=== PATIENT | female | born 1945 | race Caucasian/White ===

== ENCOUNTER 2022-11-27 12:52 | Outpatient (AMB) | payer MEDICARE, MEDICAID, SELFPAY ==
--- NOTE | 2022-11-27 12:53 | A.OFFPC_ITS ---
Vital Signs 11/27/22 12:55 Height 5 ft 1 in Weight 204 lb BMI 38.5 BP 120/60 Blood Pressure Location Lt brachial Position Sitting Pulse 71 Pulse Source Pulse Oximeter Pulse Oximetry (%) 97 Oxygen Delivery Method Room Air Intake Visit Reasons: Encounter for follow-up for hypertension Intake Note: Pt is here today to f/u b/p medication Allergies lisinopril [Lisinopril] Adverse Reaction (Mild, Verified 11/27/22 12:57) UNKNOWN From Lipitor Adverse Reaction (Mild, Uncoded 11/27/22 12:57) UNKNOWN Medication List - Last Reconciled 02/21/23 by Christy Sanchez MD acetaminophen-codeine 300-15 mg tabs PO diltiazem HCl 300 mg PO DAILY diphenoxylate-atropine 2.5-0.025 mg (Lomotil) 2 tabs PO DAILY PRN duloxetine 60 mg PO DAILY fexofenadine 60 mg PO Q12H ibrutinib (Imbruvica) 0 mg PO ketotifen fumarate 0.025%(0.035%) (Allergy Eye (ketotifen)) 1 drp ophthalmic (eye) Q12H letrozole 2.5 mg PO DAILY lorazepam 0.5 mg PO DAILY PRN meclizine 12.5 mg PO BID PRN metoprolol succinate ER 50 mg PO QPM omeprazole 20 mg PO DAILY PRN palbociclib (Ibrance) mg PO trazodone 200 mg (2 x 100 mg) PO BEDTIME Tobacco use date assessed: 11/27/22 Fall risk assessment: No Falls in past year Last assessed Fall Risk: 11/27/22 Dental Screening Dental Screen Date: 11/27/22 Did you have a dental visit in the last 12 months?: No Was dental information given to patient?: Patient declined HPI Hypertension (Cardio) History of Present Illness Current neurological symptoms Denies headache(s) Current cardiovascular symptom denies chest pain or dyspnea Most Recent Cardiac Tests: No Data to Display HPI Comments History of Present Illness Details 77-year-old lady here today for follow-u p on her hypertension. Currently taking diltiazem 300 mg once a day, metoprolol succinate ER 50 mg at bedtime. Has been compliant with taking her medications, with blood pressure today within normal limits at 120/60, and pulse of 71bpm. No complaints of any headache, no chest pain or lightheadedness on present treatment. [facility] Medical History Positional lightheadedness Gait instability Muscle cramps Insomnia Chronic diarrhea Obesity Rectovaginal fistula Osteoarthritis CKD (chronic kidney disease) stage 3, GFR 30-59 ml/min Dyslipidemia GERD (gastroesophageal reflux disease) Anxiety and depression Metastatic breast cancer Chronic low back pain CLL (chronic lymphocytic leukemia) Surgical History H/O abdominal hysterectomy Status post right breast lumpectomy Status post ileostomy Family History Mother Breast cancer Daughter Breast cancer Maternal Grandmother Breast cancer Social History Housing: House Patient Tobacco Use Status: Former Tobacco user Quit Date: For 30 years ago e-Cigarette/Vaping Use: Never Used service: No Current occupational status: retired Cognitive needs: No Hearing needs: No Vision needs: Yes Questionnaire Thrive Questionnaire Date Thrive assessed: 11/27/22 I am a: Patient What is your living situation today?: I have a steady place to live Within the past 12 months, did the food you bought not last and you didn't have the money to get more?: Never true Within the past 12 months, did you worry whether your food would run out before you got money to buy more?: Never true Do you have trouble paying for medicines?: No Do you have trouble getting transportation to medical appointments?: No Do you have trouble paying your heating and electricity bill?: No Do you have trouble taking care of your child, family member or friend?: No Do you have trouble with day-to-day activities such as bathing, preparing meals, shopping, managing finances, etc.?: No Are you currently unemployed and looking for a job?: No Are you interested in more education?: No NIDIA-7 AMB Questionnaire NIDIA-7 Date NIDIA - 7 assessed: 04/04/22 Source: Developed by Drs. Ken Sutton, Regina Dominguez, Rod Vanessa and colleagues, with an educational sole from [employer]. Review of Systems Const Denies fever(s), Denies headache(s) and Denies malaise Eyes Denies change in vision ENT Denies headache(s) Card Denies chest pain, Denies chest pain at rest, Denies rapid heart rate, Denies irregular heart rhythm and Denies dyspnea Resp Denies cough and Denies dyspnea GI Reports no additional complaints Reports no additional complaints Neuro Denies headache(s) Physical exam (Primary Care) Vital Signs: Last Vital Signs Pulse 71 11/27/22 12:55 BP 120/60 11/27/22 12:55 Pulse Ox 97 11/27/22 12:55 Oxygen Delivery Method Room Air 11/27/22 12:55 BMI result Body Mass Index 38.5 Tobacco/Smoking Status: Tobacco use Status Tobacco use date assessed 11/27/22 11/27/22 12:59 Patient Tobacco Use Status Former Tobacco user 11/27/22 12:55 e-Cigarette/Vaping Use Never Used 11/27/22 12:55 Thrive Assessment: Date of Thrive Assessment Date Thrive assessed 11/27/22 11/27/22 13:02 Const General: comfortable and no acute distress Nutritional Appearance: obese Orientation/consciousness: patient oriented x3 Eyes General: appearance normal, both eyes and all related structures Neck Neck: Yes full ROM, Yes no lymphadenopathy and Yes supple Resp Auscultation: clear to auscultation bilaterally Cardio Other: S1-S2 present regular rate and rhythm Neuro General: patient oriented x3, tone normal, moves all extremities, Normal light touch and pain sensation, no focal motor deficits and CN's II-XI intact bilaterally Extrem General: Yes full ROM, Yes no joint enlargement, Yes no pedal edema and Yes no calf tenderness Assessment and Plan Assessment & Plan (1) Essential hypertension: Code(s): I10 - Essential (primary) hypertension Plan: Blood pressure at goal of less than 130/80. Continue with current medication. Reinforced importance of following a low sodium diet, getting regular exercise, and lowering stress levels. (2) Encounter for follow-up for hypertension: Code(s): I10 - Essential (primary) hypertension Coding Level of Care Code Est Pt Level 3 (27464) Diagnoses Essential hypertension I10 Encounter for follow-up for hypertension I10
[2022-11-27 12:55] VITALS: BP 120/60; PULSE 71; O2SAT 97; BMI 38.5
== END 2022-11-27 15:09 | disposition home or self-care (01) ==
PROVIDERS: Visit Provider Internal Medicine
DX: I10 Essential (primary) hypertension (principal)
CPT/HCPCS: 99213

== ENCOUNTER 2023-05-21 10:32 | Outpatient (AMB) | payer MEDICARE, MEDICAID, SELFPAY ==
[2023-05-21 11:53] VITALS: BP 112/70; PULSE 96; TEMP 36.5; O2SAT 98; BMI 37.0
--- NOTE | 2023-05-21 11:53 | AM.OFFWIN_ITS ---
Intake Vital Signs 05/21/23 11:53 Height 5 ft 1 in Weight 196 lb BMI 37.0 BP 112/70 Blood Pressure Location Lt brachial Position Sitting Pulse 96 Pulse Source Pulse Oximeter Temp 97.7 F Temp Source Temporal Artery Scan Pulse Oximetry (%) 98 Oxygen Delivery Method Room Air Intake Visit Reasons: EP eyes watering congestion Masked in Lobby Intake Note: pt is here today for eyes watering congestion started 10 days ago Patient Tobacco Use Status: Former Tobacco user Quit Date: For 30 years ago Allergies lisinopril [Lisinopril] Adverse Reaction (Mild, Verified 05/21/23 12:04) UNKNOWN From Lipitor Adverse Reaction (Mild, Uncoded 11/27/22 12:57) UNKNOWN Do you need a note to return to daycare/school/sports/work: No HPI HPI Comments History of Present Illness Details Patient is a 77-year-old female in today for a sick visit. She has a past medical history significant for CLL, breast cancer, hypertension, hyperlipidemia, chronic kidney disease. She states that for the past several days she has developed a runny nose, and postnasal drip, which she states she can feel going down her throat and she feels like she constantly needs to expectorate. She has tried [id number] Robitussin with little relief. She denies travel or being around anyone [place] who [place]. Patient states that she feels weak and tired because she has not been able to eat much over the past few days. Denies shortness of Breath, chest pain, dizziness, vomiting, diarrhea, numbness, or tingling. Patient will have upper respiratory swab, and in the office EKG. [facility] Medical History Positional lightheadedness Gait instability Muscle cramps Insomnia Chronic diarrhea Obesity Rectovaginal fistula Osteoarthritis CKD (chronic kidney disease) stage 3, GFR 30-59 ml/min Dyslipidemia GERD (gastroesophageal reflux disease) Anxiety and depression Metastatic breast cancer Chronic low back pain CLL (chronic lymphocytic leukemia) Surgical History H/O abdominal hysterectomy Status post right breast lumpectomy Status post ileostomy Family History Mother Breast cancer Daughter Breast cancer Maternal Grandmother Breast cancer Social History Housing: House Patient Tobacco Use Status: Former Tobacco user Quit Date: For 30 years ago e-Cigarette/Vaping Use: Never Used service: No Current occupational status: retired Cognitive needs: No Hearing needs: No Vision needs: Yes Review of Systems Const Details: Constitutional : Admits some Weight loss, No Fever, No Chills, Admits Fatigue. ENT/Mouth : No sore throat, No Rhinorrhea Eyes: No Eye Pain, No Swelling, No Redness Cardiovascular : No Chest Pain, No SOB, No Dyspnea on Exertion, No Orthopnea, No Edema, No Palpitations Respiratory : Admits Cough, Admits clear Sputum, No Wheezing Gastrointestinal : No Nausea, No Vomiting, No Diarrhea, No Constipation, No abdominal Pain, No Hematochezia, No Melena Neuro : No Weakness, No Numbness, No Dizziness, No Headache All other systems reviewed and are negative Physical Exam Vital Signs: Last Vital Signs Temp 97.7 F 05/21/23 11:53 Pulse 96 05/21/23 11:53 BP 112/70 05/21/23 11:53 Pulse Ox 98 05/21/23 11:53 Oxygen Delivery Method Room Air 05/21/23 11:53 BMI result Body Mass Index 37.0 Vital signs reviewed and are stable Const Other: Appearance: Alert.? Oriented X3.? No acute distress.? Eyes: Pupils equal, round and reactive to light.? ENT: ?Post nasal drip. Pale nasal membrane with clear nasal drainage. Neck: Normal inspection.? Neck supple.?ROM normal. CVS: Normal heart rate and rhythm.? Pulses normal.? Respiratory: No respiratory distress.? Breath sounds normal.? Neuro: Oriented X 3.? No motor deficit.? No sensory deficit. CN 2-12 intact General: cooperative Results Reviewed Results Reviewed: Will call patient with swab results. Assessment & Plan Assessment & Plan (1) Upper respiratory infection: Comment: Patient will have upper respiratory swab. Patient had in office EKG which demonstrated normal sinus rhythm. Will give fluticasone nasal spray, prednisone, and albuterol, to be taken as directed. She has been educated on signs of worsening symptoms when to present back to the walk-in or when to present to the emergency room. Patient is agreeable to this plan Code(s): J06.9 - Acute upper respiratory infection, unspecified Qualifiers: URI type: unspecified viral URI Qualified Code(s): J06.9 - Acute upper respiratory infection, unspecified Plan: Take medication as directed and follow-up with PCP. Orders: Orders SARS-CoV2/FLU/RSV Today J06.9 - Acute upper respiratory infection, unspecified AMB EKG-In Office Today R06.02 - Shortness of breath Medications: New prednisone 20 mg PO DAILY 5 tabs 0RF fluticasone propionate 50 mcg/actuation (Allergy Relief (fluticasone)) administer into each nostril 2 sprays intranasal DAILY 16 grams 0RF albuterol sulfate 90 mcg/actuation 2 puffs inhalation Q6H PRN 6.7 grams 0RF shortness of breath or wheezing Coding Level of Care Code Est Pt Level 3 (19488) Diagnoses Viral upper respiratory tract infection J06.9 URI type: unspecified viral URI Time Spent (min) 30
== END 2023-05-21 13:52 | disposition home or self-care (01) ==
PROVIDERS: PCP Internal Medicine; Visit Provider Nurse Practitioner Primary Care
DX: J06.9 Acute upper respiratory infection, unspecified (principal)
CPT/HCPCS: 99213

== ENCOUNTER 2023-05-21 16:24 | Outpatient (REF) | payer MEDICARE, MEDICAID, SELFPAY ==
[2023-05-21 17:36] LABS: Influenza A PCR NEGATIVE (Negative); Influenza B PCR NEGATIVE (Negative); Resp Syncy Virus RNA Qual PCR NEGATIVE (Negative); SARS COV2 PCR INHOUSE POSITIVE (Negative)
== END 2023-05-21 16:25 | disposition home or self-care (01) ==
LOC: HO.HMGCLNP 16:24
PROVIDERS: Visit Provider Nurse Practitioner Primary Care
DX: Z11.52 Encounter for screening for COVID-19 (principal); J06.9 Acute upper respiratory infection, unspecified
CPT/HCPCS: 0241U

== ENCOUNTER 2023-10-03 13:35 | Outpatient (AMB) | payer MEDICARE, MEDICAID, SELFPAY ==
[2023-10-03 13:39] VITALS: BP 132/70; PULSE 76; O2SAT 96; BMI 36.7
--- NOTE | 2023-10-03 13:39 | A.OFFPC_ITS ---
Vital Signs 10/03/23 13:39 Height 5 ft 1 in Weight 194 lb 8 oz BMI 36.7 BP 132/70 Blood Pressure Location Lt brachial Position Sitting Pulse 76 Pulse Source Pulse Oximeter Pulse Oximetry (%) 96 Oxygen Delivery Method Room Air Intake Visit Reasons: medication follow up/was cancelled for 08/07 Intake Note: Pt is here today for medication follow up, missed appointment in August. Allergies lisinopril [Lisinopril] Adverse Reaction (Mild, Verified 10/03/23 14:01) UNKNOWN From Lipitor Adverse Reaction (Mild, Uncoded 10/03/23 14:01) UNKNOWN Medication List - Last Reconciled 10/03/23 by Christy Sanchez MD acetaminophen-codeine 300-15 mg tabs PO albuterol sulfate 90 mcg/actuation 2 puffs inhalation Q6H PRN cetirizine (Zyrtec) 10 mg PO DAILY PRN diltiazem HCl CD 300 mg PO DAILY diphenoxylate-atropine 2.5-0.025 mg (Lomotil) 2 tabs PO DAILY PRN duloxetine 60 mg PO DAILY fluticasone propionate 50 mcg/actuation (Allergy Relief (fluticasone)) 2 sprays intranasal DAILY ibrutinib (Imbruvica) 0 mg PO ketotifen fumarate 0.025%(0.035%) (Allergy Eye (ketotifen)) 1 drp ophthalmic (eye) Q12H letrozole 2.5 mg PO DAILY lorazepam 0.5 mg PO DAILY PRN meclizine 12.5 mg PO BID PRN metoprolol succinate ER 50 mg PO QPM omeprazole 20 mg PO DAILY PRN palbociclib (Ibrance) mg PO trazodone 200 mg (2 x 100 mg) PO BEDTIME zoledronic acid 4 mg IV Q3W Tobacco use date assessed: 10/03/23 Fall risk assessment: No Falls in past year Last assessed Fall Risk: 10/03/23 Dental Screening Dental Screen Date: 10/03/23 Did you have a dental visit in the last 12 months?: No Did you have a dental problem in the last 6 months where you did not have access to dental care?: No Was dental information given to patient?: No HPI HPI Comments History of Present Illness Details 77-year-old lady with history of metasta tic breast cancer, followed by Dr. Tobar at [facility], has CLL, followed by Dr. Reyes, here today for follow- up on her hypertension and lipids. Has been compliant with taking medications, however does not cook much and has been resorting to eating a lot of microwavable food and snacks. Blood pressure today is within normal limits, denies any episodes of headache, no chest pain shortness on breath. Has anxiety and depression, currently stable controlled with duloxetine 60 mg daily, rarely needing to take lorazepam for acute anxiety attacks. [facility] Medical History (Updated 10/04/23 @ 02:02 by Christy Sanchez MD) Positional lightheadedness Gait instability Muscle cramps Insomnia Chronic diarrhea Obesity Rectovaginal fistula Osteoarthritis CKD (chronic kidney disease) stage 3, GFR 30-59 ml/min Dyslipidemia GERD (gastroesophageal reflux disease) Anxiety and depression Metastatic breast cancer Chronic low back pain CLL (chronic lymphocytic leukemia) Surgical History H/O abdominal hysterectomy Status post right breast lumpectomy Status post ileostomy Family History Mother Breast cancer Daughter Breast cancer Maternal Grandmother Breast cancer Social History Housing: House Patient Tobacco Use Status: Former Tobacco user Quit Date: For 30 years ago e-Cigarette/Vaping Use: Never Used service: No Current occupational status: retired Cognitive needs: No Hearing needs: No Vision needs: Yes Questionnaire PHQ-9 Over the last 2 weeks, how often have you been bothered by any of the following problems? 1. Little interest or pleasure in doing things: not at all 2. Feeling down, depressed, or hopeless: not at all 3. Trouble falling or staying asleep, or sleeping too much: more than half the days 4. Feeling tired or having little energy: several days 5. Poor appetite or overeating: several days 6. Feeling bad about yourself - or that you are a failure or have let yourself or your family down: not at all 7. Trouble concentrating on things, such as reading the newspaper or watching television: not at all 8. Moving or speaking so slowly that other people could have noticed. Or the opposite - being so fidgety or restless that you have been moving around a lot more than usual: not at all 9. Thoughts that you would be better off or of hurting yourself in some way: not at all Total score: 4 Depression Screening Interpretation: Positive Depression Screening Follow-up: Existing condition and In treatment Depression Screening Done: Yes 21428 - PHQ-9 Billing: Yes Source: Developed by Drs. Ken Sutton, Regina Dominguez, Rod Vanessa and colleagues, with an educational sole from [employer]. Thrive Questionnaire Date Thrive assessed: 11/27/22 AUDIT C Alcohol Use Questionnaire (AUDIT-C) 1. How often do you have a drink containing alcohol?: Never 3. How often do you have six or more drinks on one occasion?: Never Total Score: 0 Score Reviewed/Action Taken: Yes NIDIA-7 AMB Questionnaire NIDIA-7 Date NIDIA - 7 assessed: 05/03/22 Feeling nervous, anxious, or on edge: 0 = Not at all Not being able to stop or control worryin = Not at all Worrying too much about different things: 0 = Not at all Trouble relaxin = Not at all Being so restless that it is hard to sit still: 0 = Not at all Becoming easily annoyed or irritable: 0 = Not at all Feeling afraid as if something awful might happen: 0 = Not at all Total NIDIA-7 score (0-4 normal; 5-9 mild; 10-14 moderate; 15-21 severe): 0 Source: Developed by Drs. Ken Sutton, Regina Dominguez, Rod Vanessa and colleagues, with an educational sole from [employer]. Review of Systems Const Denies fever(s), Denies headache(s) and Denies malaise Eyes Denies change in vision ENT Denies headache(s) Card Denies chest pain, Denies chest pain at rest, Denies rapid heart rate, Denies irregular heart rhythm and Denies dyspnea Resp Denies cough and Denies dyspnea Reports no additional complaints Musc Reports no additional complaints Neuro Denies headache(s) Psych Reports no additional complaints Donte/Lymph Reports no additional complaints Physical exam (Primary Care) Vital Signs: Last Vital Signs Pulse 76 10/03/23 13:39 BP 132/70 10/03/23 13:39 Pulse Ox 96 10/03/23 13:39 Oxygen Delivery Method Room Air 10/03/23 13:39 BMI result Body Mass Index 36.7 Tobacco/Smoking Status: Tobacco use Status Tobacco use date assessed 10/03/23 10/03/23 13:44 Patient Tobacco Use Status Former Tobacco user 10/03/23 13:44 e-Cigarette/Vaping Use Never Used 10/03/23 13:44 Depression Screening Interpretation: Positive Depression Screening Follow-up: Existing condition and In treatment Thrive Assessment: Date of Thrive Assessment Date Thrive assessed 11/27/22 10/03/23 13:44 Const General: no acute distress Nutritional Appearance: obese Orientation/consciousness: patient oriented x3 HENMT Face and sinus: Yes face symmetric Mouth: Normal oral and palatal mucosa present and moist mucous membranes Eyes General: appearance normal, both eyes and all related structures Neck Neck: Yes full ROM, Yes no lymphadenopathy and Yes supple Resp Auscultation: clear to auscultation bilaterally Cardio Other: S1-S2 present regular rate and rhythm Back/Spine/Pelvis Back: No back tenderness Skin General skin exam: no rashes or lesions noted Neuro General: patient oriented x3, tone normal, moves all extremities, Normal light touch and pain sensation, no focal motor deficits and CN's II-XI intact bilaterally Extrem General: Yes full ROM, Yes no joint enlargement and Yes no calf tenderness Psych Mental Status: mental status grossly normal Speech and movement: Normal speech and movement present and Clear speech present Affect: Anxious affect present Assessment and Plan Assessment & Plan (1) Essential hypertension: Code(s): I10 - Essential (primary) hypertension Plan: Blood pressure at goal of less than 130/80. Continue with current medication. Reinforced importance of following a low sodium diet, getting regular exercise, and lowering stress levels. (2) Anxiety and depression: Comment: Does not see a psychiatrist or therapist Code(s): F41.9 - Anxiety disorder, unspecified; F32.A - Depression, unspecified Plan: Stable and controlled on duloxetine and takes lorazepam as needed (3) GERD (gastroesophageal reflux disease): Code(s): K21.9 - Gastro-esophageal reflux disease without esophagitis Plan: Continue with omeprazole (4) Insomnia: Code(s): G47.00 - Insomnia, unspecified Plan: Currently taking trazodone at bed Medications: Refilled diltiazem HCl CD 300 mg PO DAILY 90 caps 3RF metoprolol succinate ER 50 mg PO QPM 90 tabs 3RF trazodone 200 mg (2 x 100 mg) PO BEDTIME 60 tabs 3RF duloxetine 60 mg PO DAILY 90 caps 3RF omeprazole 20 mg PO DAILY PRN 90 caps 3RF heartburn Coding Level of Care Code Est Pt Level 4 (88220) Diagnoses Essential hypertension I10 Anxiety and depression F41.9; F32.A GERD (gastroesophageal reflux disease) K21.9 Insomnia G47.00
== END 2023-10-03 16:24 | disposition home or self-care (01) ==
PROVIDERS: PCP Internal Medicine; Visit Provider Internal Medicine
DX: I10 Essential (primary) hypertension (principal); F41.9 Anxiety disorder, unspecified; F32.A Depression, unspecified; K21.9 Gastro-esophageal reflux disease without esophagitis; G47.00 Insomnia, unspecified
CPT/HCPCS: 99214

== ENCOUNTER 2024-02-13 14:37 | Outpatient (AMB) | payer MEDICARE, MEDICAID, SELFPAY ==
--- NOTE | 2024-02-13 14:41 | A.OFFPC_ITS ---
Vital Signs 02/13/24 14:42 BMI Reason not done Patient refused/unable BP 122/78 Blood Pressure Location Lt brachial Position Sitting Pulse 100 Pulse Source Pulse Oximeter Pulse Oximetry (%) 97 Oxygen Delivery Method Room Air Intake Visit Reasons: falling frequently-thinks due to medication Intake Note: Pt is here today to f/u for frequent falls and request referrals Allergies lisinopril [Lisinopril] Adverse Reaction (Mild, Verified 02/16/24 13:06) UNKNOWN From Lipitor Adverse Reaction (Mild, Uncoded 02/16/24 13:06) UNKNOWN Medication List - Last Reconciled 02/13/24 by Christy Sanchez MD acetaminophen-codeine 300-15 mg tabs PO albuterol sulfate 90 mcg/actuation 2 puffs inhalation Q6H PRN diltiazem HCl CD 300 mg PO DAILY diphenoxylate-atropine 2.5-0.025 mg (Lomotil) 2 tabs PO DAILY PRN duloxetine 60 mg PO DAILY fluticasone propionate 50 mcg/actuation (Allergy Relief (fluticasone)) 2 sprays intranasal DAILY ibrutinib (Imbruvica) 0 mg PO ketotifen fumarate 0.025%(0.035%) (Allergy Eye (ketotifen)) 1 drp ophthalmic (eye) Q12H letrozole 2.5 mg PO DAILY lorazepam 0.5 mg PO DAILY PRN metoprolol succinate ER 50 mg PO QPM omeprazole 20 mg PO DAILY PRN palbociclib (Ibrance) mg PO trazodone 200 mg (2 x 100 mg) PO BEDTIME zoledronic acid 4 mg IV Q3W Tobacco use date assessed: 02/13/24 Fall risk assessment: 2 + Falls in past year Last assessed Fall Risk: 02/13/24 Dental Screening Dental Screen Date: 02/13/24 Did you have a dental visit in the last 12 months?: No Did you have a dental problem in the last 6 months where you did not have access to dental care?: No Was dental information given to patient?: Patient declined HPI falling frequently-thinks due to medication HPI0 Details 78-year-old female with past medical his tory of metastatic breast cancer on oral chemotherapy, colectomy with colostomy bag, CKD stage 3, CLL, hypertension, hyperlipidemia , and recent distal fibular fracture on the left afetra afall 01/30/24, who was recently seen at the emergency room at [facility] [place] with concerns for bleeding into her ileostomy bag. She initially was seen at [facility] [place] [address] due to a fall and was found to have a noncalcified meningioma versus other processes in the right frontal lobe region. After her discharge from that visit, patient reports noticing more bleeding in her ileostomy bag but denies any pain. 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 She was evaluated by colorectal surgeon, Dr. Singh at bedside who did not find any evidence for any emergent intervention needed at that time. Patient states that they changed her colostomy bag but was not clearly educated on how to use it. She was advised to follow-up with the GI clinic as soon as possible. At present she is accompanied here today by her friend, she lives at home, still changing her own ileostomy bag. Requesting assistance with housework, grocery shopping, cleaning as she lives by herself. Needs a referral to neurology for evaluation of the mass in her frontal lobe seen on CT scan. Patient states that she has been unsteady when she walks, but has not had any recent falls. Denies headache, but has been complaining having frequent anxiety attacks especially at night. Requesting prescription for lorazepam to take only as needed, which has helped in the past. Already taking duloxetine 60 mg daily. [facility] Medical History (Updated 02/13/24 @ 15:12 by Christy Sanchez MD) Frontal mass of brain Left fibular fracture Degenerative joint disease of left knee Positional lightheadedness Gait instability Muscle cramps Insomnia Chronic diarrhea Obesity Rectovaginal fistula Osteoarthritis CKD (chronic kidney disease) stage 3, GFR 30-59 ml/min Dyslipidemia GERD (gastroesophageal reflux disease) Anxiety and depression Metastatic breast cancer Chronic low back pain CLL (chronic lymphocytic leukemia) Surgical History H/O abdominal hysterectomy Status post right breast lumpectomy Status post ileostomy Family History Mother Breast cancer Daughter Breast cancer Maternal Grandmother Breast cancer Social History Housing: House Patient Tobacco Use Status: Former Tobacco user e-Cigarette/Vaping Use: Never Used service: No Current occupational status: retired Cognitive needs: No Hearing needs: No Vision needs: Yes Questionnaire Thrive Questionnaire Date Thrive assessed: 11/27/22 AUDIT C Alcohol Use Questionnaire (AUDIT-C) 1. How often do you have a drink containing alcohol?: Never Total Score: 0 NIDIA-7 AMB Questionnaire NIDIA-7 Date NIDIA - 7 assessed: 02/13/24 Feeling nervous, anxious, or on edge: 1 = Several days Not being able to stop or control worryin = Several days Worrying too much about different things: 2 = More than half the days Trouble relaxin = Several days Being so restless that it is hard to sit still: 1 = Several days Becoming easily annoyed or irritable: 2 = More than half the days Feeling afraid as if something awful might happen: 1 = Several days Total NIDIA-7 score (0-4 normal; 5-9 mild; 10-14 moderate; 15-21 severe): 9 Source: Developed by Drs. Ken Sutton, Regina Dominguez, Rod Vanessa and colleagues, with an educational sole from [email or web address]. NIDIA-7 Assessment Billing NIDIA-7 Assessment Tool: NIDIA-7 Assessment 18083 Review of Systems Const Reports fatigue, Denies fever(s), Reports frequent falls, Denies headache(s) and Denies malaise Eyes Denies change in vision ENT Reports dizziness, Denies headache(s) and Denies nasal congestion Card Denies chest pain, Denies chest pain at rest, Denies rapid heart rate, Denies irregular heart rhythm and Denies dyspnea Resp Denies cough and Denies dyspnea GI Details: Normal output in colostomy bag, no further bleeding noted Reports no additional complaints Musc Reports abnormal gait (Due to recent left distal fibular fracture status post casting), Reports arthralgias, Denies joint swelling, Reports limited range of motion and Reports stiffness Neuro Reports abnormal gait (Due to recent left distal fibular fracture status post casting), Reports dizziness, Reports frequent falls and Denies headache(s) Psych Reports as per HPI Endo Reports fatigue Donte/Lymph Reports as per HPI Aller/Immun Reports no additional complaints Physical exam (Primary Care) Vital Signs: Last Vital Signs Pulse 100 02/13/24 14:42 BP 122/78 02/13/24 14:42 Pulse Ox 97 02/13/24 14:42 Oxygen Delivery Method Room Air 02/13/24 14:42 Tobacco/Smoking Status: Tobacco use Status Tobacco use date assessed 02/13/24 02/13/24 14:53 Patient Tobacco Use Status Former Tobacco user 02/13/24 14:53 e-Cigarette/Vaping Use Never Used 02/13/24 14:53 Thrive Assessment: Date of Thrive Assessment Date Thrive assessed 11/27/22 02/13/24 14:53 Const General: comfortable, no acute distress and alert Nutritional Appearance: obese Orientation/consciousness: patient oriented x3 Limitations: ambulation with walker (Left lower extremity in a cam) HENMT Head: Yes normocephalic and Yes atraumatic Ears: hearing grossly normal bilaterally and external ears normal General nose exam: Normal external nose present Face and sinus: Yes face symmetric Mouth: Normal oral and palatal mucosa present and moist mucous membranes Eyes General: appearance normal, both eyes and all related structures Neck Neck: Yes full ROM, Yes no lymphadenopathy and Yes supple Resp Auscultation: clear to auscultation bilaterally Cardio Other: S1-S2 present regular rate and rhythm GI Other: Good stool output noted, ileostomy bag in place with no surrounding erythema, no blood noted in bag Palpation (GI): Soft to palpation, nontender and no guarding Auscultation: normal bowel sounds General: Yes no CVA tenderness Back/Spine/Pelvis Back: no CVA tenderness and No back tenderness Skin General skin exam: no rashes or lesions noted Neuro General: patient oriented x3, tone normal, moves all extremities, Normal light touch and pain sensation, no focal motor deficits and CN's II-XI intact bilaterally Extrem Other: Left lower extremity in a cast, limited range of motion in left ankle and left knee General: Yes full ROM, Yes no joint enlargement and Yes no calf tenderness Psych Mental Status: mental status grossly normal Speech and movement: Normal speech and movement present and Clear speech present Affect: Anxious affect present Assessment and Plan Assessment & Plan (1) Frontal mass of brain: Code(s): G93.89 - Other specified disorders of brain Plan: Neurology consult ordered (2) History of fracture of fibula: Code(s): Z87.81 - Personal history of (healed) traumatic fracture Plan: Needs help with ADLs, advised to call [facility] for help with grocery shopping, transportation, assistance with laundry, house cleaning. Patient and her friend already called [employer] but they are lacking person now due assist at present time. (3) Gait instability: Code(s): R26.81 - Unsteadiness on feet Plan: Referred to [facility] to get assistance with ADLs (4) Anxiety and depression: Comment: Does not see a psychiatrist or therapist Code(s): F41.9 - Anxiety disorder, unspecified; F32.A - Depression, unspecified Plan: Prescription sent for lorazepam 0.5 mg to take 1 tablet once a day only as needed for acute anxiety attacks. Patient cautioned that medication may cause lightheadedness and increase her risk for falls, declines referral for counseling at present time . continue with duloxetine 60 mg daily. Do not take lorazepam when taking trazodone , which she uses as needed to help with sleeping difficulties (5) Metastatic breast cancer: Comment: To pleura and bone identified fall of 2019 Initial diagnosis was right breast cancer upper outer quadrant, ER and [place] positive, HER2 negative diagnosed in 2004 status post Aromasin daily for 5 years, currently palbociclib/letrozole, started 04/22/2020, and zoledronic acid every 3 months, ff'd by Dr Tobar Code(s): C50.919 - Malignant neoplasm of unspecified site of unspecified female breast Plan: Currently followed by Dr. Wolff (6) CLL (chronic lymphocytic leukemia): Comment: Sees Dr. Wolff currentlyon Ibrutinib Code(s): C91.10 - Chronic lymphocytic leukemia of B-cell type not having achieved remiss ion Plan: Followed by Dr. Wolff, oncology (7) Essential hypertension: Code(s): I10 - Essential (primary) hypertension Plan: Currently on diltiazem 300 mg daily and metoprolol succinate ER 50 mg at night (8) GERD (gastroesophageal reflux disease): Code(s): K21.9 - Gastro-esophageal reflux disease without esophagitis Plan: Continue omeprazole 20 mg 1 capsule daily as needed heartburn symptoms Orders: Referrals Neurology Referral G93.89 - Other specified disorders of brain Medications: Refilled lorazepam 0.5 mg PO DAILY PRN 30 tabs 0RF acute anxiety attacks Coding Level of Care Code Est Pt Level 4 (25217) Complex EM visit Add On G2211 Diagnoses Frontal mass of brain G93.89 History of fracture of fibula Z87.81 Gait instability R26.81 Anxiety and depression F41.9; F32.A Metastatic breast cancer C50.919 CLL (chronic lymphocytic leukemia) C91.10 Essential hypertension I10 GERD (gastroesophageal reflux disease) K21.9 Additional Codes NIDIA-7 Assessment Billing - NIDIA-7 Assessment Tool: NIDIA-7 Assessment 41621 ([id number])
[2024-02-13 14:42] VITALS: BP 122/78; PULSE 100; O2SAT 97
== END 2024-02-13 16:02 | disposition home or self-care (01) ==
PROVIDERS: PCP Internal Medicine; Visit Provider Internal Medicine
DX: G93.89 Other specified disorders of brain (principal); C50.919 Malignant neoplasm of unspecified site of unspecified female breast; C91.10 Chronic lymphocytic leukemia of B-cell type not having achieved remission; Z87.81 Personal history of (healed) traumatic fracture; R26.81 Unsteadiness on feet; F41.9 Anxiety disorder, unspecified; F32.A Depression, unspecified; I10 Essential (primary) hypertension; K21.9 Gastro-esophageal reflux disease without esophagitis
CPT/HCPCS: 99214; G2211

== ENCOUNTER 2024-03-24 11:28 | Outpatient (AMB) | payer MEDICARE, MEDICAID, SELFPAY ==
--- NOTE | 2024-03-24 12:11 | MHC.OFFWIV ---
Intake Vital Signs 03/24/24 12:12 Height 5 ft 1 in Weight 196 lb BMI 37.0 BP 130/90 H Blood Pressure Location Lt brachial Position Sitting Pulse 76 Pulse Source Pulse Oximeter Pulse Oximetry (%) 98 Oxygen Delivery Method Room Air Intake Visit Reasons: EP been feeling dizzy BP check Patient Tobacco Use Status: Former Tobacco user Allergies ciprofloxacin [From Cipro] Adverse Reaction (Intermediate, Verified 03/24/24 12:14) unknown lisinopril [Lisinopril] Adverse Reaction (Mild, Verified 02/16/24 13:06) UNKNOWN From Lipitor Adverse Reaction (Mild, Uncoded 02/16/24 13:06) UNKNOWN Do you need a note to return to daycare/school/sports/work: No HPI HPI Comments History of Present Illness Details This is a 70-year-old female with a past medical history of hypertension, anemia, chronic kidney disease, hyperlipidemia, CLL and metastatic breast cancer currently being treated with chemotherapy, presenting for evaluation of lightheadedness that she has had with positional changes for the past 10 days. Patient states that she is not lightheaded when seated however when she stands up she will feel temporarily lightheaded. Patient denies having any syncope or falls at home over the past 2-3 weeks. He is having any headaches, neck pain, visual changes, chest pain, shortness of breath or confusion. [facility] Medical History Frontal mass of brain Left fibular fracture Degenerative joint disease of left knee Positional lightheadedness Gait instability Muscle cramps Insomnia Chronic diarrhea Obesity Rectovaginal fistula Osteoarthritis CKD (chronic kidney disease) stage 3, GFR 30-59 ml/min Dyslipidemia GERD (gastroesophageal reflux disease) Anxiety and depression Metastatic breast cancer Chronic low back pain CLL (chronic lymphocytic leukemia) Surgical History H/O abdominal hysterectomy Status post right breast lumpectomy Status post ileostomy Family History Mother Breast cancer Daughter Breast cancer Maternal Grandmother Breast cancer Social History Housing: House Patient Tobacco Use Status: Former Tobacco user e-Cigarette/Vaping Use: Never Used service: No Current occupational status: retired Cognitive needs: No Hearing needs: No Vision needs: Yes Review of Systems Const All systems reviewed & are unremarkable except as noted in HPI and below and Other (lightheadedness with positional changes) Reports no additional complaints, Denies frequent falls and Denies headache(s) Eyes Reports no additional complaints, Denies change in vision, Denies loss of vision and Denies tunnel vision ENT Reports no additional complaints, Reports dizziness ( lightheadedness ) and Denies headache(s) Card Reports no additional complaints, Denies chest pain and Denies syncope Resp Reports no additional complaints GI Reports no additional complaints, Denies nausea and Denies vomiting Reports no additional complaints Musc Reports no additional complaints Skin/Breast Reports system reviewed and no additional complaints, except as documented Neuro Reports dizziness ( lightheadedness ), Denies syncope, Denies frequent falls, Denies headache(s), Denies loss of vision and Denies Other visual disturbances Psych Reports no additional complaints Aller/Immun Reports no additional complaints Physical Exam Vital Signs: Last Vital Signs Pulse 76 03/24/24 12:12 BP 130/90 H 03/24/24 12:12 Pulse Ox 98 03/24/24 12:12 Oxygen Delivery Method Room Air 03/24/24 12:12 BMI result Body Mass Index 37.0 Upon examination her seated blood pressure is 134/82 followed by a standing blood pressure of 118/76. Patient denies any lightheadedness during this examination. Const General: cooperative, healthy appearing, comfortable, no acute distress, well developed and alert; No ill appearing Nutritional Appearance: average body habitus Orientation/consciousness: patient oriented x3 Limitations: ambulation with cane HEENT Head: Yes normal to inspection Ears: hearing grossly normal bilaterally Eyes General: appearance normal, both eyes and all related structures Visual Smith: normal visual smith by confrontation Alignment and Position: alignment normal Periorbital: periorbital findings normal Eyelids: Yes eyelids normal Conjunctivae: conjunctivae normal Sclerae: sclerae normal Corneas: corneas normal Pupils: Equal, round and reactive pupils present EOM: EOMs intact bilaterally Cardio Rate: regular rate Rhythm: regular rhythm Neuro General: patient oriented x3 Cranial nerves: Yes CN's II-XII intact bilaterally, Yes Equal, round and reactive pupils present and Yes Nystagmus not present Psych Appearance: grossly normal Mental Status: mental status grossly normal Insight: Good insight present (Psych) Judgement: Good judgement present (Psych) Assessment & Plan Assessment & Plan (1) Lightheadedness: Comment: There is no evidence of overt orthostatic hypotension however patient's blood pressure does decrease upon standing. Patient did not exhibit any lightheadedness throughout this examination. Code(s): R42 - Dizziness and giddiness Plan: Patient will focus on oral hydration and obtain compression stockings to wear during the day. Patient is also requesting to be referred to [facility] for her previously requested neurological examination has she has not been able to get in with neurology at [facility] where she is being treated for her malignancies. Coding Level of Care Code Est Pt Level 3 (22928) Diagnoses Lightheadedness R42 Time Spent (min) 20
[2024-03-24 12:12] VITALS: BP 130/90; PULSE 76; O2SAT 98; BMI 37.0
== END 2024-03-24 12:48 | disposition home or self-care (01) ==
PROVIDERS: PCP Internal Medicine; Visit Provider Physician Assistant
DX: R42 Dizziness and giddiness (principal)

== ENCOUNTER → 2024-03-24 11:28 | Outpatient (BNVA) | payer MEDICARE, MEDICAID, SELFPAY | PROVIDERS: PCP Internal Medicine; Visit Provider Physician Assistant | DX: R42 Dizziness and giddiness (principal) | CPT/HCPCS: 99212 ==

== ENCOUNTER 2024-04-15 13:06 | Outpatient (AMB) | payer MEDICARE, MEDICAID, SELFPAY ==
--- NOTE | 2024-04-15 13:08 | MHC.PC.OV ---
Vital Signs 04/15/24 13:09 Height 5 ft 1 in Weight 189 lb BMI 35.7 BP 126/64 Blood Pressure Location Lt brachial Position Sitting Pulse 86 Pulse Source Pulse Oximeter Pulse Oximetry (%) 96 Oxygen Delivery Method Room Air Comment orthostatic b/p lying 142/64, sitting 118/62, standing 100/48 Intake Visit Reasons: f/u walk in- bp/dizzy Intake Note: Pt is here today f/u walkin dizziness Allergies ciprofloxacin [From Cipro] Adverse Reaction (Intermediate, Verified 04/19/24 17:41) unknown lisinopril [Lisinopril] Adverse Reaction (Mild, Verified 04/19/24 17:41) UNKNOWN From Lipitor Adverse Reaction (Mild, Uncoded 04/19/24 17:41) UNKNOWN Medication List - Last Reconciled 04/19/24 by Christy Sanchez MD acetaminophen-codeine 300-15 mg tabs PO diltiazem HCl CD 300 mg PO DAILY diphenoxylate-atropine 2.5-0.025 mg (Lomotil) 2 tabs PO DAILY PRN duloxetine 60 mg PO DAILY ibrutinib (Imbruvica) 0 mg PO ketotifen fumarate 0.025%(0.035%) (Allergy Eye (ketotifen)) 1 drp ophthalmic (eye) Q12H letrozole 2.5 mg PO DAILY lorazepam 0.5 mg PO DAILY PRN metoprolol succinate ER 50 mg PO QPM omeprazole 20 mg PO DAILY PRN palbociclib (Ibrance) mg PO trazodone 200 mg (2 x 100 mg) PO BEDTIME zoledronic acid 4 mg IV Q3W Tobacco use date assessed: 04/15/24 Fall risk assessment: 2 + Falls in past year Last assessed Fall Risk: 04/15/24 Dental Screening Dental Screen Date: 04/15/24 Did you have a dental visit in the last 12 months?: No Did you have a dental problem in the last 6 months where you did not have access to dental care?: No Was dental information given to patient?: Patient declined HPI f/u walk in- bp/dizzy HPI Details 70-year-old lady with a past medical history of metastatic breast cancer on oral chemotherapy, colectomy with colostomy bag, CKD stage 3, CLL, hypertension, hyperlipidemia, anemia, here today for follow-up after recent walk-in visit complaining of lightheadedness which she experiences on and off for the last 10 days. Patient states it is positional, feels fine, not lightheaded when seated , however gets temporarily lightheaded when she stands up. She not had any syncopal episodes or falls since January 29, denies headaches, neck pain, visual changes, chest pain, shortness of breath or confusion. On today's visit she was noted to be have orthostatic hypotension as evidence with her blood pressure falling when taken immediately, sitting and standing after lying supine. Lightheadedness last several seconds and resolved spontaneously. She states that she has been increasing her oral fluid intake, and has been getting less episode of lightheadedness since her visit at the walk-in clinic. Obtain consult reports from [facility] regarding her Oncology Hematology visit, last seen 02/18/2024, where it was noted that she has iron-deficiency anemia with IV iron ordered by Dr. Wolff. Last hemoglobin hematocrit received from [facility] was will 01/31/2024 at 10.2 and 29.8% respectively. She is scheduled for restaging imaging at [facility] ordered by her oncologist for her metastatic breast cancer involving pleura and bone, currently tolerating palliative therapy with palbociclib and letrozole PFSH Medical History Frontal mass of brain Left fibular fracture Degenerative joint disease of left knee Positional lightheadedness Gait instability Muscle cramps Insomnia Chronic diarrhea Obesity Rectovaginal fistula Osteoarthritis CKD (chronic kidney disease) stage 3, GFR 30-59 ml/min Dyslipidemia GERD (gastroesophageal reflux disease) Anxiety and depression Metastatic breast cancer Chronic low back pain CLL (chronic lymphocytic leukemia) Surgical History H/O abdominal hysterectomy Status post right breast lumpectomy Status post ileostomy Family History Mother Breast cancer Daughter Breast cancer Maternal Grandmother Breast cancer Social History Housing: House Patient Tobacco Use Status: Former Tobacco user e-Cigarette/Vaping Use: Never Used service: No Current occupational status: retired Cognitive needs: No Hearing needs: No Vision needs: Yes Questionnaire PHQ-9 Over the last 2 weeks, how often have you been bothered by any of the following problems? 5. Poor appetite or overeating: not at all Source: Developed by Drs. Ken Sutton, Regina Dominguez, Rod Vanessa and colleagues, with an educational sole from [employer]. Thrive Questionnaire Date Thrive assessed: 11/27/22 I am a: Patient What is your living situation today?: I have a steady place to live Within the past 12 months, did the food you bought not last and you didn't have the money to get more?: Never true Within the past 12 months, did you worry whether your food would run out before you got money to buy more?: Never true Do you have trouble paying for medicines?: No Do you have trouble getting transportation to medical appointments?: No Do you have trouble paying your heating and electricity bill?: No Do you have trouble taking care of your child, family member or friend?: No Do you have trouble with day-to-day activities such as bathing, preparing meals, shopping, managing finances, etc.?: No Are you currently unemployed and looking for a job?: No Are you interested in more education?: No Please select the resources that you would like help with: None Currently or been in a relationship where the following occur: I choose not to answer THRIVE Score: 0 AUDIT C Alcohol Use Questionnaire (AUDIT-C) 1. How often do you have a drink containing alcohol?: Never Total Score: 0 Review of Systems Const All systems reviewed & are unremarkable except as noted in HPI and below Reports no additional complaints and Denies headache(s) Eyes Reports no additional complaints, Denies change in vision, Denies loss of vision and Denies tunnel vision ENT Reports as per HPI, Denies headache(s), Denies nasal congestion and Denies sinus pain Card Denies chest pain Resp Reports no additional complaints GI Denies abdominal pain, Denies hematochezia, Denies nausea and Denies vomiting Reports no additional complaints Musc Reports no additional complaints Skin/Breast Reports system reviewed and no additional complaints, except as documented Neuro Reports as per HPI, Denies headache(s), Denies loss of vision and Denies Other visual disturbances Psych Reports no additional complaints Endo Reports no additional complaints Donte/Lymph Reports no additional complaints Aller/Immun Reports no additional complaints Physical exam (Primary Care) Vital Signs: Last Vital Signs Pulse 86 04/15/24 13:09 BP 126/64 04/15/24 13:09 Pulse Ox 96 04/15/24 13:09 Oxygen Delivery Method Room Air 04/15/24 13:09 BMI result Body Mass Index 35.7 Tobacco/Smoking Status: Tobacco use Status Tobacco use date assessed 04/15/24 04/15/24 13:12 Patient Tobacco Use Status Former Tobacco user 04/15/24 13:12 e-Cigarette/Vaping Use Never Used 04/15/24 13:12 Thrive Assessment: Date of Thrive Assessment Date Thrive assessed 11/27/22 04/15/24 13:12 Currently or been in a relationship where the following occur: I choose not to answer Const General: comfortable, no acute distress and alert Orientation/consciousness: patient oriented x3 HENMT Head: Yes normocephalic Ears: hearing grossly normal bilaterally and external ears normal General nose exam: Normal external nose present Face and sinus: Yes face symmetric Mouth: Normal oral and palatal mucosa present and moist mucous membranes Eyes General: appearance normal, both eyes and all related structures Neck Neck: Yes full ROM, Yes no lymphadenopathy and Yes supple Resp Auscultation: clear to auscultation bilaterally Cardio Other: S1-S2 present regular rate and rhythm GI Other: Good stool output noted, ileostomy bag in place with no surrounding erythema, no blood noted in bag Palpation (GI): Soft to palpation, nontender and no guarding Auscultation: normal bowel sounds General: Yes no CVA tenderness Back/Spine/Pelvis Back: no CVA tenderness and No back tenderness Skin General skin exam: no rashes or lesions noted Neuro General: patient oriented x3, tone normal, moves all extremities, Normal light touch and pain sensation, no focal motor deficits and CN's II-XI intact bilaterally Extrem General: Yes full ROM, Yes no joint enlargement and Yes no calf tenderness Psych Appearance: grossly normal and well kempt Mental Status: mental status grossly normal Speech and movement: Normal speech and movement present and Clear speech present Affect: normal affect Attitude: cooperative Thought process: Normal thought process present Coding Level of Care Code Est Pt Level 4 (61026) Complex EM visit Add On G2211 Diagnoses Orthostatic hypotension I95.1 Metastatic breast cancer C50.919 CLL (chronic lymphocytic leukemia) C91.10 Anxiety and depression F41.9; F32.A Assessment & Plan Assessment & Plan (1) Orthostatic hypotension: Code(s): I95.1 - Orthostatic hypotension Plan: Patient with anemia, which would compound her orthostasis together with increased output in her ileostomy bag. She is currently followed by Hematology at [facility] has history of chronic kidney disease received IV iron . Advised to stay well-hydrated with, patient currently asymptomatic on this visit (2) Metastatic breast cancer: Comment: To pleura and bone identified fall Initial diagnosis was right breast cancer upper outer quadrant, ER and SD positive, HER2 negative diagnosed in 2004 status post Aromasin daily for 5 years, currently palbociclib/letrozole, started 04/22/2020, and zoledronic acid every 3 months, ff'd by Dr Tobar Code(s): C50.919 - Malignant neoplasm of unspecified site of unspecified female breast Category: Medical Plan: Currently being followed at [facility] oncology, here for restaging imaging this month, reminded patient to request updated follow-up visit reports to be sent to us from her technical consultant oncology, as we have not been receiving any lately (3) CLL (chronic lymphocytic leukemia): Comment: Sees Dr. Wolff currentlyon Ibrutinib Code(s): C91.10 - Chronic lymphocytic leukemia of B-cell type not having achieved remission Category: Medical Plan: Followed by Dr. Wolff, requested copy of updated lab reports and visit notes from her technical consultant (4) Anxiety and depression: Comment: Does not see a psychiatrist or therapist Code(s): F41.9 - Anxiety disorder, unspecified; F32.A - Depression, unspecified Category: Medical Plan: Patient does not want to see a therapist, a refill on her lorazepam which he takes only as needed for acute anxiety attacks, patient sent Medications: Refilled lorazepam 0.5 mg PO DAILY PRN 30 tabs 0RF acute anxiety attacks
[2024-04-15 13:09] VITALS: BP 126/64; PULSE 86; O2SAT 96; BMI 35.7
== END 2024-04-15 14:07 | disposition home or self-care (01) ==
PROVIDERS: PCP Internal Medicine; Visit Provider Internal Medicine
DX: I95.1 Orthostatic hypotension (principal); C50.919 Malignant neoplasm of unspecified site of unspecified female breast; C91.10 Chronic lymphocytic leukemia of B-cell type not having achieved remission; F41.9 Anxiety disorder, unspecified; F32.A Depression, unspecified

== ENCOUNTER → 2024-04-15 13:06 | Outpatient (BNVA) | payer MEDICARE, MEDICAID, SELFPAY | PROVIDERS: PCP Internal Medicine; Visit Provider Internal Medicine | DX: I95.1 Orthostatic hypotension (principal); C50.919 Malignant neoplasm of unspecified site of unspecified female breast; C91.10 Chronic lymphocytic leukemia of B-cell type not having achieved remission; F41.9 Anxiety disorder, unspecified; F32.A Depression, unspecified | CPT/HCPCS: 99212 ==

== ENCOUNTER 2024-08-06 13:21 | Outpatient (AMB) | payer MEDICARE, MEDICAID, SELFPAY ==
[2024-08-06 13:24] VITALS: BP 112/84; PULSE 63; RESP 16; TEMP 36.7; O2SAT 98; BMI 37.0
--- NOTE | 2024-08-06 13:24 | A.OFFPC_ITS ---
Vital Signs 08/06/24 13:24 Height 5 ft 1 in Weight 196 lb BMI 37.0 BP 112/84 Blood Pressure Location Lt brachial Position Sitting Respiration 16 Pulse 63 Pulse Source Pulse Oximeter Temp 98.0 F Temp Source Oral Pulse Oximetry (%) 98 Oxygen Delivery Method Room Air Intake Visit Reasons: Med Review Intake Note: Pt is here today for a f/u Allergies ciprofloxacin [From Cipro] Adverse Reaction (Intermediate, Verified 08/06/24 13:41) unknown lisinopril [Lisinopril] Adverse Reaction (Mild, Verified 08/06/24 13:41) UNKNOWN From Lipitor Adverse Reaction (Mild, Uncoded 08/06/24 13:41) UNKNOWN Medication List - Last Reconciled 08/06/24 by Christy Sanchez MD acetaminophen-codeine 300-15 mg tabs PO denosumab (Prolia) 60 mg subcut [id number] diltiazem HCl CD 300 mg PO DAILY diphenoxylate-atropine 2.5-0.025 mg (Lomotil) 2 tabs PO DAILY PRN duloxetine 60 mg PO DAILY ibrutinib (Imbruvica) 0 mg PO ketotifen fumarate 0.025%(0.035%) (Allergy Eye (ketotifen)) 1 drp ophthalmic (eye) Q12H PRN letrozole 2.5 mg PO DAILY lorazepam 0.5 mg PO DAILY PRN metoprolol succinate ER 50 mg PO BID omeprazole 20 mg PO DAILY PRN palbociclib (Ibrance) mg PO trazodone 200 mg (2 x 100 mg) PO BEDTIME zoledronic acid 4 mg IV Q3W Tobacco use date assessed: 08/06/24 Fall risk assessment: No Falls in past year Last assessed Fall Risk: 08/06/24 Dental Screening Dental Screen Date: 08/06/24 Did you have a dental visit in the last 12 months?: No Did you have a dental problem in the last 6 months where you did not have access to dental care?: No Was dental information given to patient?: Patient declined HPI Med Review HPI Details 78-year-old lady with a past medical hi story of metastatic breast cancer on oral letrozole, and palbociclib since 04/2020, and remains on Prolia infusion, continues on ibrutinib through Dr. Wolff due to history of chronic lymphocytic leukemia, history of diverticulitis s/p colectomy with colostomy bag, CKD stage 3, hypertension, hyperlipidemia, anemia, here today for follow-up . She has been having intermittent episodes of lightheadedness, which has resolved after adjusting her metoprolol dose to taking it 50 mg twice a day. [facility] Medical History (Updated 08/06/24 @ 14:02 by Christy Sanchez MD) Frontal mass of brain Left fibular fracture Degenerative joint disease of left knee Positional lightheadedness Gait instability Muscle cramps Insomnia Chronic diarrhea Obesity Rectovaginal fistula Osteoarthritis CKD (chronic kidney disease) stage 3, GFR 30-59 ml/min Dyslipidemia GERD (gastroesophageal reflux disease) Anxiety and depression Metastatic breast cancer Chronic low back pain CLL (chronic lymphocytic leukemia) Surgical History H/O abdominal hysterectomy Status post right breast lumpectomy Status post ileostomy Family History Mother Breast cancer Daughter Breast cancer Maternal Grandmother Breast cancer Social History Housing: House Patient Tobacco Use Status: Former Tobacco user e-Cigarette/Vaping Use: Never Used service: No Current occupational status: retired Cognitive needs: No Hearing needs: No Vision needs: Yes Questionnaire PHQ-9 Over the last 2 weeks, how often have you been bothered by any of the following problems? 1. Little interest or pleasure in doing things: not at all 2. Feeling down, depressed, or hopeless: not at all 3. Trouble falling or staying asleep, or sleeping too much: not at all 4. Feeling tired or having little energy: several days 5. Poor appetite or overeating: not at all 6. Feeling bad about yourself - or that you are a failure or have let yourself or your family down: not at all 7. Trouble concentrating on things, such as reading the newspaper or watching television: several days 8. Moving or speaking so slowly that other people could have noticed. Or the opposite - being so fidgety or restless that you have been moving around a lot more than usual: not at all 9. Thoughts that you would be better off or of hurting yourself in some way: not at all Total score: 2 Depression Screening Interpretation: Negative Depression Screening Done: Yes 91388 - PHQ-9 Billing: Yes Source: Developed by Drs. Ken Sutton, Regina Dominguez, Rod Vanessa and colleagues, with an educational sole from [employer]. Thrive Questionnaire Date Thrive assessed: 11/27/22 I am a: Patient What is your living situation today?: I have a steady place to live Within the past 12 months, did the food you bought not last and you didn't have the money to get more?: I choose not to answer this question Within the past 12 months, did you worry whether your food would run out before you got money to buy more?: I choose not to answer this question Do you have trouble paying for medicines?: No Do you have trouble getting transportation to medical appointments?: No Do you have trouble paying your heating and electricity bill?: No Do you have trouble taking care of your child, family member or friend?: No Do you have trouble with day-to-day activities such as bathing, preparing meals, shopping, managing finances, etc.?: Yes Are you currently unemployed and looking for a job?: No Are you interested in more education?: No Please select the resources that you would like help with: None Currently or been in a relationship where the following occur: I choose not to answer THRIVE Score: 0 AUDIT C Alcohol Use Questionnaire (AUDIT-C) 1. How often do you have a drink containing alcohol?: Never Total Score: 0 NIDIA-7 AMB Questionnaire NIDIA-7 Feeling nervous, anxious, or on edge: 0 = Not at all Not being able to stop or control worryin = Several days Worrying too much about different things: 1 = Several days Trouble relaxin = Several days Being so restless that it is hard to sit still: 0 = Not at all Becoming easily annoyed or irritable: 1 = Several days Feeling afraid as if something awful might happen: 0 = Not at all Total NIDIA-7 score (0-4 normal; 5-9 mild; 10-14 moderate; 15-21 severe): 4 Source: Developed by Drs. Ken Sutton, Rod Oliver Kroenke and colleagues, with an educational sole from [employer]. NIDIA-7 Assessment Billing NIDIA-7 Assessment Tool: NIDIA-7 Assessment 28782 (Takes lorazepam as needed) Review of Systems Const Reports no additional complaints and Denies headache(s) Eyes Reports no additional complaints ENT Denies headache(s), Denies nasal congestion and Denies sinus pain Card Denies chest pain Resp Reports no additional complaints GI Denies abdominal pain, Denies hematochezia, Denies nausea and Denies vomiting Reports no additional complaints Musc Reports no additional complaints Neuro Denies headache(s) and Denies Other visual disturbances Psych Reports no additional complaints Endo Reports no additional complaints Donte/Lymph Reports no additional complaints Aller/Immun Reports no additional complaints Physical exam (Primary Care) Vital Signs: Last Vital Signs Temp 98.0 F 08/06/24 13:24 Pulse 63 08/06/24 13:24 Resp 16 08/06/24 13:24 BP 112/84 08/06/24 13:24 Pulse Ox 98 08/06/24 13:24 Oxygen Delivery Method Room Air 08/06/24 13:24 BMI result Body Mass Index 37.0 Tobacco/Smoking Status: Tobacco use Status Tobacco use date assessed 08/06/24 08/06/24 13:31 Patient Tobacco Use Status Former Tobacco user 08/06/24 13:31 e-Cigarette/Vaping Use Never Used 08/06/24 13:31 Depression Screening Interpretation: Negative Thrive Assessment: Date of Thrive Assessment Date Thrive assessed 11/27/22 08/06/24 13:31 Currently or been in a relationship where the following occur: I choose not to answer Const General: comfortable, no acute distress and alert Orientation/consciousness: patient oriented x3 HENMT Head: Yes normocephalic Ears: hearing grossly normal bilaterally and external ears normal General nose exam: Normal external nose present Face and sinus: Yes face symmetric Mouth: Normal oral and palatal mucosa present and moist mucous membranes Eyes General: appearance normal, both eyes and all related structures Neck Neck: Yes full ROM, Yes no lymphadenopathy and Yes supple Resp Auscultation: clear to auscultation bilaterally Cardio Other: S1-S2 present regular rate and rhythm GI Other: Good stool output noted, ileostomy bag in place with no surrounding erythema, no blood noted in bag Palpation (GI): Soft to palpation, nontender and no guarding Auscultation: normal bowel sounds General: Yes no CVA tenderness Back/Spine/Pelvis Back: no CVA tenderness and No back tenderness Skin General skin exam: no rashes or lesions noted Neuro General: patient oriented x3, tone normal, moves all extremities, Normal light touch and pain sensation, no focal motor deficits and CN's II-XI intact bilaterally Extrem General: Yes full ROM, Yes no joint enlargement and Yes no calf tenderness Psych Appearance: grossly normal and well kempt Mental Status: mental status grossly normal Speech and movement: Normal speech and movement present and Clear speech present Affect: normal affect Attitude: cooperative Thought process: Normal thought process present Immunizations pneumoc 20-susan conj-dip cr(PF) 0.5 mL IM syringe Performing Provider: Crhisty Sanchez MD Performing Location: [facility] Administered by: Tara Mcknight CMA on 08/06/24 14:07 Dose Route Admin Location Dispensed Lot Number Expiration Date [facility] Activity Aide 0.5 mL IM Left Deltoid 0.5 mL [id number] 09/30/25 [id number] My Study [employer] VIS Given Date VIS Provided VIS Publication Date 08/06/24 Single Vaccine 21 Eligibility Eligibility Date Funding Source Not [facility] 08/06/24 Private Coding Level of Care Code Est Pt Level 4 (85153) Complex EM visit Add On G2211 Diagnoses Essential hypertension I10 Anxiety and depression F41.9; F32.A Need for pneumococcal 20-valent conjugate vaccination Z23 Additional Codes NIDIA-7 Assessment Billing - NIDIA-7 Assessment Tool: NIDIA-7 Assessment 01193 ([id number]) PHQ-9 - 01791 - PHQ-9 Billing: Yes ([id number]) Assessment & Plan Assessment & Plan (1) Essential hypertension: Code(s): I10 - Essential (primary) hypertension Category: Medical Plan: Blood pressure now stable and controlled on metoprolol taken 50 mg 1 tablet twice a day (2) Anxiety and depression: Comment: Does not see a psychiatrist or therapist Code(s): F41.9 - Anxiety disorder, unspecified; F32.A - Depression, unspecified Category: Medical Plan: Declines referral for counseling, takes only lorazepam as needed for acute attacks of anxiety and takes an occasional trazodone at night to help her sleep. (3) Need for pneumococcal 20-valent conjugate vaccination: Code(s): Z23 - Encounter for immunization Plan: Prevnar 20 given today. Orders: Orders Pneumococcal 20 Immunization Today Z23 - Encounter for immunization Medications: New metoprolol tartrate 50 mg PO Q12H 3 months 180 tabs 2RF
--- OUTSIDE RECORDS SUMMARY | 2024-08-06 16:13 | XMS_ITS | Patient Health Record ---
Author Organization [facility], [facility] Address [address] [place] [phone] Support Name Relationship Address Phone TOYA SUNG Guarantor Unknown Unavailable REASON FOR REFERRAL No Information PLAN OF TREATMENT No Information Insurance Providers Payer Name Payer Address Payer Phone Subscriber Number Group Number Insured Name Patient Relationship to Insured Coverage Start Date Coverage End Date Medicare [address] [place] [id number] [phone] [id number] ANA LILIA TOYA Self - patient is the insured 1 AAR Supplement [address] [place], [place] [phone] [id number] TOYA SUNG Self - patient is the insured
--- OUTSIDE RECORDS SUMMARY | 2024-08-06 16:13 | XMS_ITS ---
Author Organization [facility] Address Unknown Allergies, Adverse Reactions, Alerts Substance Reaction Status Noted Date Resolved Date glue active 01/07/2015 Cipro active 01/07/2015 Encounters Encounter Performer Performer Role Encounter Diagnoses Location Date Discharge - [facility] 01/06/2015 12:00 am EDT - 01/07/2015 02:00 pm EDT Immunizations Vaccine Date Influenza Pneumovax (historical) Social History
--- OUTSIDE RECORDS SUMMARY | 2024-08-06 16:13 | XMS_ITS ---
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
== END 2024-08-06 14:09 | disposition home or self-care (01) ==
PROVIDERS: PCP Internal Medicine; Visit Provider Internal Medicine
DX: Z23 Encounter for immunization (principal)

== ENCOUNTER → 2024-08-06 13:21 | Outpatient (BNVA) | payer MEDICARE, MEDICAID, SELFPAY | PROVIDERS: PCP Internal Medicine; Visit Provider Internal Medicine | DX: Z23 Encounter for immunization (principal); I10 Essential (primary) hypertension; F41.9 Anxiety disorder, unspecified; F32.A Depression, unspecified | CPT/HCPCS: 90471; 90677; 96127; 99212 ==

== ENCOUNTER 2024-12-07 13:33 | Outpatient (AMB) | payer MEDICARE, MEDICAID, SELFPAY ==
[2024-12-07 13:43] VITALS: BP 106/62; PULSE 77; TEMP 36.3; O2SAT 100; BMI 36.7
--- NOTE | 2024-12-07 13:43 | AM.OFFWIN_ITS ---
Intake Vital Signs 12/07/24 13:43 Height 5 ft 1 in Weight 194 lb BMI 36.7 BP 106/62 Blood Pressure Location Lt brachial Position Sitting Pulse 77 Pulse Source Pulse Oximeter Temp 97.4 F Temp Source Oral Pulse Oximetry (%) 100 Oxygen Delivery Method Room Air Intake Visit Reasons: EP ? UTI Intake Note: presents with yellow mucous vaginal discharge for over 10 days Patient Tobacco Use Status: Former Tobacco user Allergies ciprofloxacin (From Cipro) Adverse Reaction (Intermediate, Verified 12/07/24 13:51) unknown lisinopril (Lisinopril) Adverse Reaction (Mild, Verified 12/07/24 13:51) UNKNOWN From Lipitor Adverse Reaction (Mild, Uncoded 08/06/24 13:41) UNKNOWN Do you need a note to return to daycare/school/sports/work: No HPI HPI Comments History of Present Illness Details 79 y/o Female Patient who presents to [facility] walk in clinic with c/o Urinary symptoms associated with yellow Vaginal discharge for 10 days now. Pt not sexually active, no concerns for STI. ON LICENSE OF [facility] Medical History (Updated 12/07/24 @ 14:35 by Nasima Ivey NP) Vaginitis and vulvovaginitis Cystitis Frontal mass of brain Left fibular fracture Degenerative joint disease of left knee Positional lightheadedness Gait instability Muscle cramps Insomnia Chronic diarrhea Obesity Rectovaginal fistula Osteoarthritis CKD (chronic kidney disease) stage 3, GFR 30-59 ml/min Dyslipidemia GERD (gastroesophageal reflux disease) Anxiety and depression Metastatic breast cancer Chronic low back pain CLL (chronic lymphocytic leukemia) Surgical History H/O abdominal hysterectomy Status post right breast lumpectomy Status post ileostomy Family History Mother Breast cancer Daughter Breast cancer Maternal Grandmother Breast cancer Social History Housing: House Patient Tobacco Use Status: Former Tobacco user e-Cigarette/Vaping Use: Never Used service: No Current occupational status: retired Cognitive needs: No Hearing needs: No Vision needs: Yes Review of Systems Const All systems reviewed & are unremarkable except as noted in HPI and below Physical Exam Vital Signs: Last Vital Signs Temp 97.4 F 12/07/24 13:43 Pulse 77 12/07/24 13:43 BP 106/62 12/07/24 13:43 Pulse Ox 100 12/07/24 13:43 Oxygen Delivery Method Room Air 12/07/24 13:43 BMI result Body Mass Index 36.7 Const General: no acute distress Nutritional Appearance: obese Orientation/consciousness: patient oriented x3 External Female Exam: externally tender Speculum Exam - Vagina: abnormal vaginal discharge malodorous, frothy and yellow, vagina atrophic and erythematous Speculum Exam - Cervix: Cervix absent Bimanual exam- vagina & uterus: uterus absent Neuro General: patient oriented x3 and moves all extremities Psych Speech and movement: Normal speech and movement present Results AMB Urinalysis, Automated UA Leukoctes 500 Shay/uL Last Edit by Cara El MA on 12/07/24 14:13 UA Nitrite Negative Last Edit by Cara El MA on 12/07/24 14:13 UA Urobilinogen 0.2 mg/dL Last Edit by Cara El MA on 12/07/24 14:13 UA Protein 30 mg/dL Last Edit by Cara El MA on 12/07/24 14:13 UA pH 7.5 Last Edit by Cara El MA on 12/07/24 14:13 UA Blood 80 Usman/uL Last Edit by Cara El MA on 12/07/24 14:13 UA Specific [place] 1.010 Last Edit by Cara El MA on 12/07/24 14:1 3 UA Ketone Negative Last Edit by Cara El MA on 12/07/24 14:13 UA Bilirubin 0 mg/dL Last Edit by Cara El MA on 12/07/24 14:13 UA Glucose 0 mg/dL Last Edit by Cara El MA on 12/07/24 14:13 Results Reviewed Results Reviewed: Laboratory Last Values Urine pH (Auto) 7.5 12/07/24 13:43 Specific [place] (Auto) 1.010 12/07/24 13:43 Urine Protein (Auto) 30 mg/dL 12/07/24 13:43 Glucose (UA)(Auto) 0 mg/dL 12/07/24 13:43 Urine Ketones (Auto) Negative 12/07/24 13:43 Urine Blood (Auto) 80 Usman/uL 12/07/24 13:43 Urine Nitrite (Auto) Negative 12/07/24 13:43 Urine Bilirubin (Auto) 0 mg/dL 12/07/24 13:43 Urine Urobilinogen (Auto) 0.2 mg/dL 12/07/24 13:43 Leukocyte Esterase (Auto) 500 Shay/uL 12/07/24 13:43 Assessment & Plan Assessment & Plan (1) Cystitis: Code(s): N30.90 - Cystitis, unspecified without hematuria Plan: Urinalysis positive for BERTHA Ordered Urine culture Hydrate well with water. (2) Vaginitis and vulvovaginitis: Code(s): N76.0 - Acute vaginitis Plan: Vaginal discharge consistent with Yeast. Ordered Vaginal Panel Ordered Fluconazole. Orders: Orders AMB Urinalysis Automated Today Z13.9 - Encounter for screening, unspecified Urine Culture Today N30.90 - Cystitis, unspecified without hematuria Bacterial Vaginosis Panel Today N76.0 - Acute vaginitis Medications: New cefuroxime axetil 500 mg PO BID 14 tabs 0RF 7 days N30.90 - Cystitis, unspeci fied without hematuria fluconazole TAKE 1 TABLET NOW, MAY TAKE SECOND DOSE IN 3 DAYS(72 HOURS). 150 mg PO DAILY 2 tabs 0RF N76.0 - Acute vaginitis Coding Level of Care Code Est Pt Level 4 (27626) Diagnoses Cystitis N30.90 Vaginitis and vulvovaginitis N76.0 Time Spent (min) 20
--- OUTSIDE RECORDS SUMMARY | 2024-12-07 14:01 | XMS_ITS ---
Author Organization [facility] Care Team Providers Care Commercial Insulator Name Role Phone Luís Alonzo Unavailable Unavailable Allergies and adverse reactions Code CodeSystem Substance Reaction Severity StartDate Concern Status glue Unknown 01/07/2015 active Cipro Unknown 01/07/2015 active Care Team Name Role Address Phone Organization Dates Luís Alonzo PCP [address], [address], [place], [address], [place] States (Office): : [facility] 01/06/2015 - 01/07/2015 Mental Status Section Date Assessment Total Score Description 01/07/2015 BIMS 15 cognitively int act PHQ-9 00 Reason for Referral No Reasons for Referral Entered Social History Social History Observation Description Start Date End Date Code Code System Current Smoking Status Tobacco smoking consumption unknown 531664964 SNOMED CT Sex Assigned At Female 1945 [address]5519-3 [facility] Gender Identity Vital Signs Code Code System Vitals Name Values and Units Timing Information 9279-1 LOINC Respiratory Rate Value=20.0 Units=/m in 01/07/2015 8462-4 LOINC Blood Pressure-Diastolic Value=80 Un its=mmHg 01/07/2015 8480-6 LOINC Blood Pressure-Systolic Uhjce=630 Un its=mmHg 01/07/2015 8310-5 LOINC Body Temperature Value=97.7 Units= F 01/07/2015 8867-4 LOINC Heart rate Etjxi=494.0 Units=/min 01/07/2015 76885-2 [facility] O2 % BldC Oximetry Value=97.0 Units= % 01/07/2015 58117-6 LOINC Pain Level Value=9.0 01/07/2015
--- OUTSIDE RECORDS SUMMARY | 2024-12-07 14:01 | XMS_ITS ---
Author Organization [facility] Care Team Providers Care Campus Manager Name Role Phone Omid Hernandez Unavailable Unavailable Allergies and adverse reactions Code CodeSystem Substance Reaction Severity StartDate Concern Status super glue Moderate Unknown active Cipro Skin reaction - finding (code- [id number], SNOMED CT) Severe 01/07/2015 active Care Team Name Role Address Phone Organization Dates Omid Hernandez [address] [place], [address], [place] States (Office): : [facility] 01/07/2015 - 01/14/2015 Immunizations Immunization Status Vaccine Details Vaccine Code CodeSystem Date Notes TB 1 Step Mantoux (PPD) completed tuberculin skin test; purified protein derivative solution, intradermal lotNumber: [id number] expiry: 05/02/2016 Mfg: par [employer] Given 0.1 ml Left Forearm intradermally 96 CVX created date: 01/09/2015 consent date: 01/08/2015 administer ed date: 01/09/2015 Educated by Jose Roberto Gibbs on 01/08/2015 Mental Status Section Date Assessment Total Score Description 01/14/2015 BIMS 15 cognitively int act PHQ-9 02 minimal depress ion Problems Problem # Description Date of onset Resolved Date Code CodeSystem Concern Status 1 ADJUSTMENT DISORDER WITH MIXED ANXIETY AND DEPRESSED MOOD 01/07/[address] active 2 DIVERTICULITIS OF LARGE INTESTINE WITHOUT PERFORATION OR ABSCESS WITHOUT BLEEDING 01/07/[address] active Reason for Referral No Reasons for Referral Entered Social History Social History Observation Description Start Date End Date Code Code System Current Smoking Status Tobacco smoking consumption unknown 218103472 SNOMED CT Sex Assigned At Female 1945 38841-1 [facility] Gender Identity Vital Signs Code Code System Vitals Name Values and Units Timing Information 9279-1 [facility] Respiratory Rate Value=20.0 Units=/m in 01/14/2015 8310-5 [facility] Body Temperature Value=98.4 Units= F 01/14/2015 8867-4 [facility] Heart rate Value=94.0 Units=/min 47564-6 [facility] O2 % BldC Oximetry Value=97.0 Units= % 01/14/2015 8462-4 [facility] Blood Pressure-Diastolic Value=76 Un its=mmHg 01/14/2015 8480-6 [facility] Blood Pressure-Systolic Irrex=512 Un its=mmHg 01/14/2015 23275-2 [facility] Pain Level Value=7.0 01/14/2015 05468-7 [facility] Weight Ejgol=546.5 Units=Lbs 12/2014
== END 2024-12-07 14:46 | disposition home or self-care (01) ==
PROVIDERS: PCP Internal Medicine; Visit Provider Nurse Practitioner Family
DX: N30.90 Cystitis, unspecified without hematuria (principal); N76.0 Acute vaginitis; Z13.9 Encounter for screening, unspecified

== ENCOUNTER 2024-12-07 13:33 | Outpatient (REF) | payer MEDICARE, MEDICAID, SELFPAY ==
[2024-12-08 10:58] LABS: Bacterial Vaginosis PCR NEGATIVE (Negative); Candida Group PCR NOT DETECTED (Not Detect); Candida glab krusei PCR NOT DETECTED (Not Detect); Trichomonas vaginalis PCR NOT DETECTED (Not Detect)
== END 2024-12-07 13:34 | disposition home or self-care (01) ==
LOC: HO.LAB 13:33
PROVIDERS: PCP Internal Medicine; Visit Provider Nurse Practitioner Family
DX: N30.90 Cystitis, unspecified without hematuria (principal); N76.0 Acute vaginitis; Z13.9 Encounter for screening, unspecified
CPT/HCPCS: 81003; 81515; 87086; 87088; 87186; 99212

== ENCOUNTER → 2025-01-19 13:17 | Outpatient (BNVA) | payer MEDICARE, MEDICAID, SELFPAY | PROVIDERS: PCP Internal Medicine; Visit Provider Internal Medicine | DX: F41.9 Anxiety disorder, unspecified (principal); F32.A Depression, unspecified | CPT/HCPCS: 99212 ==

== ENCOUNTER → 2025-01-19 13:17 | Outpatient (AMB) | payer MEDICARE, MEDICAID, SELFPAY ==
--- NOTE | 2025-01-19 13:34 | A.OFFPC_ITS ---
Vital Signs 01/19/25 13:35 Height 5 ft 1 in Weight 192 lb BMI 36.3 BP 110/60 Blood Pressure Location Lt brachial Position Sitting Respiration 16 Pulse 61 Pulse Source Pulse Oximeter Temp 97.6 F Pulse Oximetry (%) 96 Oxygen Delivery Method Room Air Intake Visit Reasons: anxiety Intake Note: Pt is here today wants to discuss anxiety Allergies ciprofloxacin (From Cipro) Adverse Reaction (Intermediate, Verified 01/26/25 00:33) unknown lisinopril (Lisinopril) Adverse Reaction (Mild, Verified 01/26/25 00:33) UNKNOWN From Lipitor Adverse Reaction (Mild, Uncoded 01/26/25 00:33) UNKNOWN Medication List - Last Reconciled 01/19/25 by Christy Sanchez MD acetaminophen-codeine 300-15 mg tabs PO denosumab (Prolia) 60 mg subcutaneously once monthly; diltiazem HCl CD 300 mg PO DAILY diphenoxylate-atropine 2.5-0.025 mg (Lomotil) 2 tabs PO DAILY PRN duloxetine 60 mg PO DAILY ibrutinib (Imbruvica) 280 mg PO DAILY ketotifen fumarate 0.025%(0.035%) (Allergy Eye (ketotifen)) 1 drp ophthalmic (eye) Q12H PRN letrozole 2.5 mg PO DAILY lorazepam 0.5 mg PO DAILY PRN metoprolol tartrate 50 mg PO Q12H 3 months omeprazole 20 mg PO DAILY PRN palbociclib (Ibrance) mg PO trazodone 200 mg (2 x 100 mg) PO BEDTIME zoledronic acid 4 mg IV Q3W Tobacco use date assessed: 01/19/25 Fall risk assessment: No Falls in past year Last assessed Fall Risk: 01/19/25 Dental Screening Dental Screen Date: 01/19/25 Did you have a dental visit in the last 12 months?: No Did you have a dental problem in the last 6 months where you did not have access to dental care?: No Was dental information given to patient?: Patient declined HPI HPI Comments History of Present Illness Details - 79-year-old female presenting today w ith complains of intermittent episodes of anxiety and insomnia. - She experiences difficulty sleeping, o ften waking up at 3 or 4 AM, and only finds rest after her mind becomes too tired to think. - Symptoms began after her brother's stanley th, suggesting adjustment disorder with anxiety. - Trazodone 200 mg taken at bedtime, now not helping with sleep. Currently taking duloxetine 60 mg daily for depression , which has been found to be ineffective in helping her control her acute anxiety attacks lately. She also takes an occasional lorazepam lately when she gets overwhelmed dealing with all the legalities, experiencing financial stress due to the recent passing of her brother, who previously contributed to household expenses. - She is dealing with legal and financia l matters related to her brother's estate, which is causing significant stress. [facility] Medical History Vaginitis and vulvovaginitis Cystitis Frontal mass of brain Left fibular fracture Degenerative joint disease of left knee Positional lightheadedness Gait instability Muscle cramps Insomnia Chronic diarrhea Obesity Rectovaginal fistula Osteoarthritis CKD (chronic kidney disease) stage 3, GFR 30-59 ml/min Dyslipidemia GERD (gastroesophageal reflux disease) Anxiety and depression Metastatic breast cancer Chronic low back pain CLL (chronic lymphocytic leukemia) Surgical History H/O abdominal hysterectomy Status post right breast lumpectomy Status post ileostomy Family History Mother Breast cancer Daughter Breast cancer Maternal Grandmother Breast cancer Social History Housing: House Patient Tobacco Use Status: Former Tobacco user e-Cigarette/Vaping Use: Never Used service: No Current occupational status: retired Cognitive needs: No Hearing needs: No Vision needs: Yes Questionnaire PHQ-9 Over the last 2 weeks, how often have you been bothered by any of the following problems? 1. Little interest or pleasure in doing things: several days 2. Feeling down, depressed, or hopeless: several days 3. Trouble falling or staying asleep, or sleeping too much: several days 4. Feeling tired or having little energy: several days 5. Poor appetite or overeating: not at all 6. Feeling bad about yourself - or that you are a failure or have let yourself or your family down: not at all 7. Trouble concentrating on things, such as reading the newspaper or watching television: not at all 8. Moving or speaking so slowly that other people could have noticed. Or the opposite - being so fidgety or restless that you have been moving around a lot more than usual: not at all 9. Thoughts that you would be better off or of hurting yourself in some way: not at all Total score: 4 Depression Screening Interpretation: Positive Depression Screening Follow-up: Existing condition, In treatment and Follow-up Visit Requested Depression Screening Done: Yes Source: Developed by Drs. Ken Sutton, Regina Dominguez, Rod Vanessa and colleagues, with an educational sole from [employer]. Thrive Questionnaire Date Thrive assessed: 08/06/24 I am a: Patient What is your living situation today?: I have a steady place to live Within the past 12 months, did the food you bought not last and you didn't have the money to get more?: I choose not to answer this question Within the past 12 months, did you worry whether your food would run out before you got money to buy more?: I choose not to answer this question Do you have trouble paying for medicines?: No Do you have trouble getting transportation to medical appointments?: No Do you have trouble paying your heating and electricity bill?: No Do you have trouble taking care of your child, family member or friend?: No Do you have trouble with day-to-day activities such as bathing, preparing meals, shopping, managing finances, etc.?: Yes Are you currently unemployed and looking for a job?: No Are you interested in more education?: No Please select the resources that you would like help with: None Currently or been in a relationship where the following occur: I choose not to answer THRIVE Score: 0 NIDIA-7 AMB Questionnaire NIDIA-7 Date NIDIA - 7 assessed: 01/19/25 Feeling nervous, anxious, or on edge: 1 = Several days Not being able to stop or control worryin = More than half the days Worrying too much about different things: 1 = Several days Trouble relaxin = Not at all Being so restless that it is hard to sit still: 0 = Not at all Becoming easily annoyed or irritable: 1 = Several days Feeling afraid as if something awful might happen: 0 = Not at all Total NIDIA-7 score (0-4 normal; 5-9 mild; 10-14 moderate; 15-21 severe): 5 Source: Developed by Drs. Ken Sutton, Regina Dominguez, Rod Vanessa and colleagues, with an educational sole from [employer]. Review of Systems Const All systems reviewed & are unremarkable except as noted in HPI and below Physical exam (Primary Care) Vital Signs: Last Vital Signs Temp 97.6 F 01/19/25 13:35 Pulse 61 01/19/25 13:35 Resp 16 01/19/25 13:35 BP 110/60 01/19/25 13:35 Pulse Ox 96 01/19/25 13:35 Oxygen Delivery Method Room Air 01/19/25 13:35 BMI result Body Mass Index 36.3 Tobacco/Smoking Status: Tobacco use Status Tobacco use date assessed 01/19/25 01/19/25 13:43 Patient Tobacco Use Status Former Tobacco user 01/19/25 13:43 e-Cigarette/Vaping Use Never Used 01/19/25 13:43 Depression Screening Interpretation: Positive Depression Screening Follow-up: Existing condition, In treatment and Follow-up Visit Requested Thrive Assessment: Date of Thrive Assessment Date Thrive assessed 08/06/24 01/19/25 13:43 Currently or been in a relationship where the following occur: I choose not to answer Const General: no acute distress and alert Orientation/consciousness: patient oriented x3 HENMT Ears: external ears normal General nose exam: Normal external nose present Face and sinus: Yes face symmetric Mouth: Normal oral and palatal mucosa present and moist mucous membranes Eyes General: appearance normal, both eyes and all related structures Neck Neck: Yes full ROM, Yes no lymphadenopathy and Yes supple Resp Auscultation: clear to auscultation bilaterally Cardio Other: S1-S2 present regular rate and rhythm GI Palpation (GI): Soft to palpation, nontender and no guarding Auscultation: normal bowel sounds General: Yes no CVA tenderness Back/Spine/Pelvis Back: no CVA tenderness and No back tenderness Skin General skin exam: no rashes or lesions noted Neuro General: patient oriented x3, tone normal, moves all extremities, Normal light touch and pain sensation, no focal motor deficits and CN's II-XI intact bilaterally Extrem General: Yes full ROM, Yes no joint enlargement and Yes no calf tenderness Psych Appearance: grossly normal and well kempt Mental Status: mental status grossly normal Speech and movement: Normal speech and movement present and Clear speech present Affect: normal affect Coding Level of Care Code Est Pt Level 4 (59774) Diagnoses Anxiety and depression F41.9; F32.A Assessment & Plan Assessment & Plan (1) Anxiety and depression: Comment: Does not see a psychiatrist or therapist Code(s): F41.9 - Anxiety disorder, unspecified; F32.A - Depression, unspecified Category: Medical Plan: prescribed hydroxyzine to manage anxiety and insomnia, to be taken at bedtime alongside trazodone, as there are no known interactions. She will receive a prescription for 30 tablets, with instructions to take 10 mg at bedtime as needed, and to halve the dose if having excessive drowsiness, lightheadedness. Declines referral for therapy. Schedule office visit or notify us if medication on helping or if anxiety attacks progresses Dietary management will continue to address ileostomy complications, and follow-up with her pick out hand is recommended for further evaluation of the fistula. Patient was informed and verbally consented to the use of an ambient scribe for clinic note documentation during this visit. Medications: New hydroxyzine HCl 10 mg PO BEDTIME 30 tabs 0RF
[2025-01-19 13:35] VITALS: BP 110/60; PULSE 61; RESP 16; TEMP 36.4; O2SAT 96; BMI 36.3
== END ==
PROVIDERS: PCP Internal Medicine; Visit Provider Internal Medicine
DX: F41.9 Anxiety disorder, unspecified (principal); F32.A Depression, unspecified

== ENCOUNTER 2025-04-15 11:38 | Outpatient (AMB) | payer MEDICARE, MEDICAID, SELFPAY ==
--- NOTE | 2025-04-15 11:47 | A.OFFPC_ITS ---
Vital Signs 04/15/25 12:06 Height 5 ft 1 in Weight 199 lb BMI 37.6 BP 128/78 Blood Pressure Location Lt brachial Position Sitting Respiration 16 Pulse 75 Pulse Source Pulse Oximeter Temp 98.0 F Temp Source Oral Pulse Oximetry (%) 95 Oxygen Delivery Method Room Air Intake Visit Reasons: needs a f/u Intake Note: Pt is here today for her HTN [employer] Required: No Allergies ciprofloxacin (From Cipro) Adverse Reaction (Intermediate, Verified 04/15/25 12:14) unknown lisinopril (Lisinopril) Adverse Reaction (Mild, Verified 04/15/25 12:14) UNKNOWN From Lipitor Adverse Reaction (Mild, Uncoded 04/15/25 12:14) UNKNOWN Medication List - Last Reconciled 04/15/25 by Christy Sanchez MD acetaminophen-codeine 300-15 mg tabs PO denosumab (Prolia) 60 mg subcutaneously once monthly; diltiazem HCl CD 300 mg PO DAILY diphenoxylate-atropine 2.5-0.025 mg (Lomotil) 2 tabs PO DAILY PRN duloxetine 60 mg PO DAILY hydroxyzine HCl 10 mg PO BEDTIME ibrutinib (Imbruvica) 280 mg PO DAILY letrozole 2.5 mg PO DAILY lorazepam 0.5 mg PO DAILY PRN magnesium 250 mg PO BID metoprolol tartrate 50 mg PO Q12H 3 months omeprazole 20 mg PO DAILY PRN palbociclib (Ibrance) mg PO trazodone 200 mg (2 x 100 mg) PO BEDTIME zoledronic acid 4 mg IV Q3W Tobacco use date assessed: 04/15/25 Last assessed Fall Risk: 04/15/25 Dental Screening Dental Screen Date: 04/15/25 Did you have a dental visit in the last 12 months?: No Did you have a dental problem in the last 6 months where you did not have access to dental care?: No Was dental information given to patient?: Patient has dentist HPI needs a f/u HPI Details 79 year-old lady with a past medical hi story of metastatic breast cancer on oral letrozole, and palbociclib since 04/2020, and remains on Prolia infusion, continues on ibrutinib through Dr. Wolff due to history of chronic lymphocytic leukemia, history of diverticulitis s/p colectomy with colostomy bag, CKD stage 3, hypertension, hyperlipidemia, anemia, here today for follow-up . Blood pressure stable and controlled on present treatment, Takes duloxetine and trazodone for her depression and anxiety, does not want to be referred for therapy or sees psychiatrist, takes lorazepam only as needed for severe acute anxiety attacks, would like to see if she can also take hydroxyzine as needed instead of trazodone at bedtime for help with sleep [facility] Medical History Vaginitis and vulvovaginitis Cystitis Frontal mass of brain Left fibular fracture Degenerative joint disease of left knee Positional lightheadedness Gait instability Muscle cramps Insomnia Chronic diarrhea Obesity Rectovaginal fistula Osteoarthritis CKD (chronic kidney disease) stage 3, GFR 30-59 ml/min Dyslipidemia GERD (gastroesophageal reflux disease) Anxiety and depression Metastatic breast cancer Chronic low back pain CLL (chronic lymphocytic leukemia) Surgical History H/O abdominal hysterectomy Status post right breast lumpectomy Status post ileostomy Family History Mother Breast cancer Daughter Breast cancer Maternal Grandmother Breast cancer Social History Housing: House Patient Tobacco Use Status: Former Tobacco user e-Cigarette/Vaping Use: Never Used service: No Current occupational status: retired Cognitive needs: No Hearing needs: No Vision needs: Yes Questionnaire PHQ-9 Over the last 2 weeks, how often have you been bothered by any of the following problems? 1. Little interest or pleasure in doing things: several days 2. Feeling down, depressed, or hopeless: several days 3. Trouble falling or staying asleep, or sleeping too much: several days 4. Feeling tired or having little energy: several days 5. Poor appetite or overeating: not at all 6. Feeling bad about yourself - or that you are a failure or have let yourself o r your family down: not at all 7. Trouble concentrating on things, such as reading the newspaper or watching television: not at all 8. Moving or speaking so slowly that other people could have noticed. Or the opposite - being so fidgety or restless that you have been moving around a lot more than usual: not at all 9. Thoughts that you would be better off or of hurting yourself in some way: not at all Total score: 4 Depression Screening Interpretation: Positive (Does not want to see a therapist or Psychiatry) Depression Screening Follow-up: Existing condition, In treatment and Follow-up Visit Requested Depression Screening Done: Yes Source: Developed by Drs. Ken Sutton, Regina Dominguez, Rod Vanessa and colleagues, with an educational sole from [employer]. Thrive Questionnaire Date Thrive assessed: 08/06/24 I am a: Patient What is your living situation today?: I have a steady place to live Within the past 12 months, did the food you bought not last and you didn't have the money to get more?: I choose not to answer this question Within the past 12 months, did you worry whether your food would run out before you got money to buy more?: I choose not to answer this question Do you have trouble paying for medicines?: No Do you have trouble getting transportation to medical appointments?: No Do you have trouble paying your heating and electricity bill?: No Do you have trouble taking care of your child, family member or friend?: No Do you have trouble with day-to-day activities such as bathing, preparing meals, shopping, managing finances, etc.?: Yes Are you currently unemployed and looking for a job?: No Are you interested in more education?: No Please select the resources that you would like help with: None Currently or been in a relationship where the following occur: I choose not to answer THRIVE Score: 0 NIDIA-7 AMB Questionnaire NIDIA-7 Date NIDIA - 7 assessed: 01/19/25 Feeling nervous, anxious, or on edge: 1 = Several days Not being able to stop or control worryin = More than half the days Worrying too much about different things: 1 = Several days Trouble relaxin = Not at all Being so restless that it is hard to sit still: 0 = Not at all Becoming easily annoyed or irritable: 1 = Several days Feeling afraid as if something awful might happen: 0 = Not at all Total NIDIA-7 score (0-4 normal; 5-9 mild; 10-14 moderate; 15-21 severe): 5 Source: Developed by Drs. Ken Sutton, Regina Dominguez, Rod Vanessa and colleagues, with an educational sole from [employer]. Review of Systems Const All systems reviewed & are unremarkable except as noted in HPI and below Physical exam (Primary Care) Vital Signs: Last Vital Signs Temp 98.0 F 04/15/25 12:06 Pulse 75 04/15/25 12:06 Resp 16 04/15/25 12:06 BP 128/78 04/15/25 12:06 Pulse Ox 95 04/15/25 12:06 Oxygen Delivery Method Room Air 04/15/25 12:06 BMI result Body Mass Index 37.6 Tobacco/Smoking Status: Tobacco use Status Tobacco use date assessed 04/15/25 04/15/25 11:51 Patient Tobacco Use Status Former Tobacco user 04/15/25 11:47 e-Cigarette/Vaping Use Never Used 04/15/25 11:47 PHQ-9: PHQ-9 Score PHQ-9: Total score 4 04/15/25 12:28 Depression Screening Interpretation: Positive (Does not want to see a therapist or Psychiatry) Depression Screening Follow-up: Existing condition, In treatment and Follow-up Visit Requested Thrive Assessment: Date of Thrive Assessment Date Thrive assessed 08/06/24 04/15/25 11:47 Currently or been in a relationship where the following occur: I choose not to answer Const General: no acute distress and alert Orientation/consciousness: patient oriented x3 HENMT Ears: external ears normal General nose exam: Normal external nose present Face and sinus: Yes face symmetric Mouth: Normal oral and palatal mucosa present and moist mucous membranes Eyes General: appearance normal, both eyes and all related structures Neck Neck: Yes full ROM, Yes no lymphadenopathy and Yes supple Resp Auscultation: clear to auscultation bilaterally Cardio Other: S1-S2 present regular rate and rhythm GI Palpation (GI): Soft to palpation, nontender and no guarding Auscultation: normal bowel sounds General: Yes no CVA tenderness Back/Spine/Pelvis Back: no CVA tenderness and No back tenderness Skin General skin exam: no rashes or lesions noted Neuro General: patient oriented x3, tone normal, moves all extremities, Normal light touch and pain sensation, no focal motor deficits and CN's II-XI intact bilaterally Extrem General: Yes full ROM, Yes no joint enlargement and Yes no calf tenderness Psych Appearance: grossly normal and well kempt Mental Status: mental status grossly normal Speech and movement: Normal speech and movement present and Clear speech present Affect: normal affect Coding Level of Care Code Complex visit Add On G2211 Diagnoses Anxiety and depression F41.9; F32.A Essential hypertension I10 Right knee pain, unspecified chronicity M25.561 Chronicity: unspecified Assessment & Plan Assessment & Plan (1) Anxiety and depression: Comment: Does not see a psychiatrist or therapist Code(s): F41.9 - Anxiety disorder, unspecified; F32.A - Depression, unspecified Category: Medical Plan: Currently on duloxetine 60 mg daily, prescription sent for hydroxyzine to take 10 mg at bedtime as needed for acute anxiety attacks. Has lorazepam to take as needed for severe anxiety attacks (2) Essential hypertension: Code(s): I10 - Essential (primary) hypertension Category: Medical Plan: Blood pressure stable and controlled on present treatment, continued on metoprolol tartrate 50 mg every 12 hours and diltiazem 300 mg daily (3) Right knee pain: Code(s): M25.561 - Pain in right knee Qualifiers: Chronicity: unspecified Qualified Code(s): M25.561 - Pain in right knee Plan: She takes acetaminophen with codeine as needed for severe pain Medications: Changed From hydroxyzine HCl 10 mg PO BEDTIME 30 tabs 0RF To hydroxyzine HCl 10 mg PO BEDTIME PRN 30 tabs 0RF anxiety
[2025-04-15 12:06] VITALS: BP 128/78; PULSE 75; RESP 16; TEMP 36.7; O2SAT 95; BMI 37.6
== END 2025-04-15 15:27 | disposition home or self-care (01) ==
LOC: HO.HMCC 11:38
PROVIDERS: PCP Internal Medicine; Visit Provider Internal Medicine
DX: F41.9 Anxiety disorder, unspecified (principal); F32.A Depression, unspecified; I10 Essential (primary) hypertension; M25.561 Pain in right knee

== ENCOUNTER → 2025-04-15 11:38 | Outpatient (BNVA) | payer MEDICARE, MEDICAID, SELFPAY | PROVIDERS: PCP Internal Medicine; Visit Provider Internal Medicine | DX: I12.9 Hypertensive chronic kidney disease with stage 1 through stage 4 chronic kidney disease, or unspecified chronic kidney disease (principal); N18.30 Chronic kidney disease, stage 3 unspecified; F41.9 Anxiety disorder, unspecified; F32.A Depression, unspecified; M25.561 Pain in right knee | CPT/HCPCS: 96127; 99212 ==